=== PATIENT | female | born 1960 | race American Indian/Alaskan Native ===

== ENCOUNTER 2020-02-04 13:30 | Emergency (ER) | payer MEDICAID ==
[2020-02-04 13:45] VITALS: BP 129/73
--- NOTE | 2020-02-04 16:09 | Emergency Department Report ---
ED General Adult HPI - General Chief complaint: Neck Pain/Injury Stated complaint: KNOT ON NECK/HARD TO SWALLOW Time Seen by Provider: 02/04/20 16:06 Source: patient Mode of arrival: Ambulatory Limitations: No Limitations - History of Present Illness Initial comments: 59-year-old -[place] female presents to the emergency room complaining of a knot to the right side of her neck and trouble swallowing x3 to 4 months. Patient denies any fever or chills denies any pain no nausea no vomiting no trouble breathing. Patient states that she is able to eat and drink without difficulties. Patient states she does have just a little trouble with swa llowing. Patient denies any past medical history she does report having surgery on her left leg and had an abscess to her neck in the past for an abscess. Patient reports that she recently relocated from [place], [place]. Onset/Timin -: month(s) Severity scale (0 -10): 0 Quality: other (No pain) Consistency: constant Improves with: none Worsens with: none Associated Symptoms: denies other symptoms Treatments Prior to Arrival: none - Related Data Allergies Allergy/AdvReac Type Severity Reaction Status Date / Time No Known Allergies Allergy Unverified 02/04/20 13:43 ED Review of Systems ROS: Stated complaint: KNOT ON NECK/HARD TO SWALLOW Other details as noted in HPI ED Past Medical Hx - Past Medical History Previous Medical History?: No - Surgical History Past Surgical History?: Yes Additional Surgical History: Left leg ED Physical Exam - General Limitations: No Limitations General appearance: alert, in no apparent distress - Head Head exam: Present: atraumatic, normocephalic - Eye Eye exam: Present: normal appearance - ENT ENT exam: Present: normal exam, mucous membranes moist - Neck Neck exam: Present: full ROM, other (Right side firm mass that is nontender) - Respiratory Respiratory exam: Present: normal lung sounds bilaterally. Absent: respiratory distress - Cardiovascular Cardiovascular Exam: Present: regular rate, normal rhythm. Absent: systolic murmur, diastolic murmur, rubs, gallop - Neurological Exam Neurological exam: Present: alert, oriented X3, normal gait - Expanded Neurological Exam Expanded Cranial nerves: EOM's Intact: Normal, Gag Reflex: Normal, Tongue Deviation: Normal, Nystagmus: Normal, Facial Sensation: Normal, Facial Palsy with Forehead Movement: Normal, Facial Palsy without Forehead Movement: Normal Cerebellar function: Finger to Nose: Normal, Heel to [place]: Normal, Romberg: Normal Upper motor neuron: Philip Neglect: Normal, Pronator Drift: Normal, Sensory Extinction: Normal Sensory exam: Upper Extremity Light Touch: Normal, Upper Extremity Pin Prick: Normal, Upper Extremity Temperature: Normal, UE 2 Point Discrimination: Normal, Lower Extremity Light Touch: Normal, Lower Extremity Pin Prick: Normal, Lower Extremity Temperature: Normal, LE 2 Point Discrimination: Normal Motor strength exam: RUE: 4, LUE: 4, RLE: 4, LLE: 4 Best Eye Response ([place]): (4) open spontaneously Best Motor Response ([place]): (6) obeys commands Best Verbal Response (Rishi): (5) oriented [place] Total: 15 - Psychiatric Psychiatric exam: Present: normal affect, normal mood - Skin Skin exam: Present: warm, dry, intact, normal color. Absent: rash ED Course Vital Signs 02/04/20 02/04/20 13:43 19:10 Temperature 98.4 F Pulse Rate 89 92 H Respiratory 16 17 Rate Blood Pressure 129/73 O2 Sat by Pulse 100 100 Oximetry ED Medical Decision Making - Lab Data Result diagrams: 02/04/20 16:26 02/04/20 16:26 - Radiology Data Radiology results: report reviewed Patient: LEONCIO WILKINSON MR#: [id number] : 1960 Acct:[id number] Age/Sex: 59 / F ADM Date: 02/04/20 Loc: ED Attending Dr: Ordering Physician: ELSA VIEIRA Date of Service: 02/04/20 Procedure(s): CT neck w con Accession Number(s): [id number] cc: ELSA VIEIRA CT NECK WITH INTRAVENOUS CONTRAST AND MULTIPLANAR RECONSTRUCTION CLINICAL HISTORY: Right neck mass. TECHNIQUE: 3.75 mm thick contiguous axial scans were obtained from the skull base down to the aortic arch during intravenous contrast administration. In addition to evaluation of axial source images sagittal and coronal multiplanar reconstructions were produced and reviewed for this report. All CT imaging studies performed at this facility utilize dose modulation, iterative reconstruction or weight based dosing, if appropriate, to obtain the lowest achievable radiation dose. FINDINGS: Gas tracks posteriorly and laterally from the right piriform sinus. This reflects the presence of a small laryngocele. No additional abnormalities are seen along the course of the airway. Nasopharynx, oropharynx, hypopharynx, larynx and visualized portions of the subglottic airway all have an otherwise unremarkable appearance. A 3.3 x 2.0 x 1.8 cm mass is present located between the anterior medial margin of the right sternocleidomastoid muscle and posterior margin of the right submandibular salivary gland. This likely represents a pathologically enlarged level II lymph node. There is posterior displacement of the carotid sheath structures. Additional smaller sided level II lymph nodes are identified elsewhere. Prominent level 1B lymph nodes are also observed. Differential diagnosis includes lymphoid malignancy and metastatic disease. I do not identified a definite site of a primary neoplasm. No abnormalities are seen in evaluation of the oral cavity and tongue. The floor the mouth has a normal appearance. Widespread periodontal disease is demonstrated. The parotid and submandibular salivary glands have a normal appearance. Evaluation of the nasal cavity reveals no abnormality. The paranasal sinuses are free from inflammatory mucosal disease. Evaluation of the orbits reveals no abnormality. The thyroid gland is normal in size and homogeneous in attenuation. No focal thyroid lesions are identified. Evaluation of the cervical spine reveals no significant abnormality. Normal alignment is maintained. No significant degenerative changes are identified. Evaluation of the lung apices reveals no abnormality. There is no indication of lung nodule or infiltrate. The visualized portions of the superior mediastinum have an unremarkable appearance. Enhancement of normal vascular structures is demonstrated. No areas of abnormal contrast enhancement are identified. IMPRESSION: 1. 3.3 x 2.0 x 1.8 cm right neck mass likely represents a pathologically enlarged level II lymph node. Please refer to the above discussion. Signer Name: Alessandro Carey MD Signed: 02/04/2020 6:27 PM Workstation Name: [id number] Transcribed By: Dictated By: Alessandro Carey MD Electronically Authenticated By: Alessandro Carey MD Signed Date/Time: 02/04/201826 DD/ 17 TD/TT: - Medical Decision Making 59-year-old -[place] female presents to the emergency room complaining of a knot to the right side of her neck and trouble swallowing x3 to 4 months. Patient denies any fever or chills denies any pain no nausea no vomiting no trouble breathing. Patient states that she is able to eat and drink without difficulties. Patient states she does have just a little trouble with swallowing. Patient denies any past medical history she does report having surgery on her left leg and had an abscess to her neck in the past for an abscess. Patient reports that she recently relocated from [place], [place]. CT soft tissue neck with ordered. 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 Did speak to Dr. Yang regarding abnormal CT scan he recommends referring patient to [facility] for the for them to coordinate care to the hematology oncology. Critical care attestation.: If time is entered above; I have spent that time in minutes in the direct care of this critically ill patient, excluding procedure time. ED Disposition Clinical Impression: Mass in neck Disposition: DC- TO HOME OR SELFCARE Is pt being admited?: No Does the pt Need Aspirin: No Condition: Stable Additional Instructions: CT is concerning for possible lymphoma/cancer I highly recommended she follow-up with hematology oncology we will refer you to [facility] which is a primary care clinic that can help you get into 1 of the hematology clinics. Their information is below one your discharge summary. Referrals: KARLIE DOHERTY DO [Staff Physician] - 3-5 Days [facility] [Provider Group] - 3-5 Days [facility] [Provider Group] - 3-5 Days
[2020-02-04 17:09] LABS: Basophils % (Auto) 0.6 % (0.0-1.8); Eosinophils # (Auto) 0.4 K/mm3 (0.0-0.4); Eosinophils % (Auto) 5.1 % (0.0-4.3); Hematocrit 39.2 % (30.3-42.9); Hemoglobin 13.1 gm/dl (10.1-14.3); Lymphocytes # (Auto) 1.9 K/mm3 (1.2-5.4); Lymphocytes % (Auto) 26.1 % (13.4-35.0); Mean Corpuscular HGB Conc 34 % (30-34); Mean Corpuscular Volume 96 fl (79-97); Monocytes # (Auto) 0.3 K/mm3 (0.0-0.8); Monocytes % (Auto) 4.5 % (0.0-7.3); Platelet Count 278 K/mm3 (140-440); Red Cell Distribution Width 13.8 % (13.2-15.2)
[2020-02-04 17:16] LABS: Alanine Aminotransferase 10 units/L (7-56); Albumin 4.1 g/dL (3.9-5); Blood Urea Nitrogen 7 mg/dL (7-17); Calcium 9.4 mg/dL (8.4-10.2); Hemolysis Index 18
[2020-02-04 17:31] LABS: BUN/Creatinine Ratio 10
--- NOTE | 2020-02-04 18:31 | Cat Scan Report ---
CT NECK WITH INTRAVENOUS CONTRAST AND MULTIPLANAR RECONSTRUCTION CLINICAL HISTORY: Right neck mass. TECHNIQUE: 3.75 mm thick contiguous axial scans were obtained from the skull base down to the aortic arch during intravenous contrast administration. In addition to evaluation of axial source images sagittal and c oronal multiplanar reconstructions were produced and reviewed for this report. All CT imaging studies performed at this facility utilize dose modulation, iterative reconstruction o r weight based dosing, if appropriate, to obtain the lowest achievable radiation dose. FINDINGS: Gas tracks posteriorly and laterally from the right piriform sinus. This reflects the presence of a s mall laryngocele. No additional abnormalities are seen along the course of the airway. Nasopharynx, o ropharynx, hypopharynx, larynx and visualized portions of the subglottic airway all have an otherwise unremarkable appearance. A 3.3 x 2.0 x 1.8 cm mass is present located between the anterior medial margin of the right sternocl eidomastoid muscle and posterior margin of the right submandibular salivary gland. This likely repres ents a pathologically enlarged level II lymph node. There is posterior displacement of the carotid sh eath structures. Additional smaller sided level II lymph nodes are identified elsewhere. Prominent le ashish 1B lymph nodes are also observed. Differential diagnosis includes lymphoid malignancy and metasta tic disease. I do not identified a definite site of a primary neoplasm. No abnormalities are seen in evaluation of the oral cavity and tongue. The floor the mouth has a norm al appearance. Widespread periodontal disease is demonstrated. The parotid and submandibular salivary glands have a normal appearance. Evaluation of the nasal cavity reveals no abnormality. The paranasal sinuses are free from inflammato ry mucosal disease. Evaluation of the orbits reveals no abnormality. The thyroid gland is normal in size and homogeneous in attenuation. No focal thyroid lesions are iden tified. Evaluation of the cervical spine reveals no significant abnormality. Normal alignment is maintained. No significant degenerative changes are identified. Evaluation of the lung apices reveals no abnormality. There is no indication of lung nodule or infilt rate. The visualized portions of the superior mediastinum have an unremarkable appearance. Enhancement of normal vascular structures is demonstrated. No areas of abnormal contrast enhancement are identified. IMPRESSION: 1. 3.3 x 2.0 x 1.8 cm right neck mass likely represents a pathologically enlarged level II lymph node . Please refer to the above discussion. Signer Name: Alessandro Carey MD Signed: 02/04/2020 6:27 PM Workstation Name: [id number]
== END 2020-02-04 19:10 | disposition home or self-care (01) ==
LOC: ED 13:30
DX: R22.1 Localized swelling, mass and lump, neck (principal); Z98.890 Other specified postprocedural states
CPT/HCPCS: 36415; 70491; 80053; 85025; 99284; Q9967

== ENCOUNTER 2020-05-25 07:48 | Outpatient (CLI) | payer MEDICAID ==
--- NOTE | 2020-05-25 12:00 | Fluoroscopy Report ---
MODIFIED BARIUM SWALLOW INDICATION: DYSPHAGIA TECHNIQUE: Swallowing was evaluated in the lateral position under direct fluoroscopy. FINDINGS: The patient was evaluated with thin liquids, puree, semisolid and solid consistencies. No aspiration or penetration was witnessed. No significant residuals. Please correlate with the forma l report by speech therapy. IMPRESSION: Unremarkable exam. Fluoroscopic time: 0.8 minutes Number of fluoroscopic images: 1 Signer Name: Aaron Sam Jr, MD Signed: 05/25/2020 11:56 AM Workstation Name: [id number]
== END 2020-05-25 07:49 | disposition home or self-care (01) ==
LOC: PT 07:48
PROVIDERS: ATTEND Otolaryngology
DX: R13.10 Dysphagia, unspecified (principal); R22.9 Localized swelling, mass and lump, unspecified
CPT/HCPCS: 74230

== ENCOUNTER 2020-06-09 11:22 | Emergency (ER) | payer MEDICAID ==
[2020-06-09 11:41] VITALS: BP 112/70
--- NOTE | 2020-06-09 12:32 | Emergency Department Report ---
Chief Complaint: Medical Clearance Stated Complaint: MASS ON RT SIDE OF NECK; PAINFUL SWALLOWING Time Seen by Provider: 06/09/20 12:26 - HPI History of Present Illness: Patient here today for medical records from her past visit for her primary care doctor. She is being evaluated currently for lymphoma of the neck. She denies any new or worsening symptoms today and states that she mistakenly signed into the ED for her medical records today. Patient stable for discharge home and follow-up with her primary care doctor. Patient given assistance to medical records. - Exam Vital Signs: Vital Signs 06/09/20 11:40 Temperature 97.6 F Pulse Rate 90 Respiratory 16 Rate Blood Pressure 112/70 [Right] O2 Sat by Pulse 99 Oximetry MSE screening note: Focused history and physical exam performed. Due to findings the following was ordered: ED Disposition for MSE Clinical Impression: Medical report requested Disposition: MED SCREENING EXAM-LEFT Is pt being admited?: No Condition: Stable Referrals: PRIMARY CARE, [Primary Care Provider] - 3-5 Days ED Physical Exam - General Limitations: No Limitations General appearance: alert, in no apparent distress - Head Head exam: Present: atraumatic, normocephalic - Eye Eye exam: Absent: scleral icterus - Respiratory Respiratory exam: Absent: respiratory distress - Cardiovascular Cardiovascular Exam: Present: regular rate
== END 2020-06-09 12:43 | disposition left against medical advice (07) ==
LOC: ED 11:22
DX: R13.10 Dysphagia, unspecified (principal); Z53.21 Procedure and treatment not carried out due to patient leaving prior to being seen by health care provider